=== PATIENT | male | born 1990 | race Caucasian/White ===

== ENCOUNTER → 2019-08-13 15:46 | Outpatient (BNVA) | payer SELFPAY | PROVIDERS: Visit Provider Nurse Practitioner Family | DX: S82.55XA Nondisplaced fracture of medial malleolus of left tibia, initial encounter for closed fracture (principal); X58.XXXA Exposure to other specified factors, initial encounter | CPT/HCPCS: 73590 ==

== ENCOUNTER → 2019-08-19 14:42 | Outpatient (BNVA) | payer SELFPAY | PROVIDERS: Referring Provider Nurse Practitioner Family; Visit Provider Podiatrist Foot & Ankle Surgery | DX: M25.572 Pain in left ankle and joints of left foot (principal) | CPT/HCPCS: 73610 ==

== ENCOUNTER 2019-08-19 15:32 | Outpatient (CLI) | payer SELFPAY | END 2019-08-19 15:33 | disposition home or self-care (01) | LOC: SPT 15:33 | PROVIDERS: Visit Provider Podiatrist Foot & Ankle Surgery | DX: Z46.89 Encounter for fitting and adjustment of other specified devices (principal); S80.12XD Contusion of left lower leg, subsequent encounter; X58.XXXD Exposure to other specified factors, subsequent encounter | CPT/HCPCS: 97760; L4361 ==

== ENCOUNTER 2020-03-08 10:28 | Emergency (ER) | payer SELFPAY ==
[2020-03-08 10:48] VITALS: BP 149/109; PULSE 105; RESP 18; TEMP 36.7; O2SAT 97; BMI 48.8
--- NOTE | 2020-03-08 11:01 | ED_ITS ---
HPI - Wound/Laceration General: Chief Complaint: Wound/Laceration Stated Complaint: Finger Injury Time Seen by Provider: 03/08/20 11:01 Source: patient Mode of arrival: ambulatory Limitations: no limitations History of Present Illness: HPI narrative: Patient was using a chainsaw this afternoon and the chain broke. Patient protected his face with his left hand. Patient injured his left ring finger. Patient has normal flexion-extension of the finger, there is ulnar side lacerations to the finger. Distal cap refill is intact. Review of Systems General: Reports: 10 or more systems reviewed and unremarkable except in HPI and below Skin/Breast: Reports: other (Lacerations left ring finger.) PFSH ED PFSH: Surgical History History of ankle surgery Right Family History Father Diabetes Cancer Social History Smoking and tobacco status: never smoked Physical Exam Const: COMMON NORMALS: no acute distress and patient oriented x3 GENERAL APPEARANCE: cooperative HENMT: COMMON NORMALS: normocephalic and Normal external nose present HEAD & SCALP: normal to inspection and normocephalic NOSE: Normal external nose present MOUTH: Normal oral and palatal mucosa present Eye: GENERAL EYE: appearance normal, both eyes and all related structures Neck/C-Spine: COMMON NORMALS: full ROM Chest: COMMONS NORMALS: normal inspection of the chest Resp: COMMON NORMALS: normal respiratory effort EFFORT & INSPECTION: Yes able to speak in complete sentences Cardio: COMMON NORMALS: regular rate and regular rhythm RATE: regular rate RHYTHM: regular rhythm GI: COMMON NORMALS: non-tender Back/Pelvis: COMMON NORMALS: thoracic and lumbar spine normal to inspection Extremity: COMMON NORMALS: normal to inspection Neuro: COMMON NORMALS: patient oriented x3 and moves all extremities Psych: COMMON NORMALS: mental status grossly normal and cooperative Skin: NARRATIVE SKIN EXAM: Multiple lacerations to the left ring finger. Procedures Laceration Laceration 1: Site: upper extremity (Left ring finger) Side (If applicable): left Size (cm): 5 Description: irregular Depth: simple, single layer Local Anesthetic: lidocaine 1% Amount of anesthesia used (mL): 5 Pre-repair: wound explored and irrigated extensively Skin layer closed with: nylon Size (cm): 5-0 Number of sutures: 10 Technique: simple, interrupted Course Vital Signs: Vital signs: Vital Signs Temperature 98.0 F 03/08/20 10:48 Pulse Rate 70 03/08/20 12:22 Respiratory Rate 16 03/08/20 12:22 Blood Pressure 149/109 03/08/20 10:48 Pulse Oximetry 98 03/08/20 12:22 MDM - Wound/Laceration MDM Narrative: Medical decision making narrative: Patient comes in for injury to the left ring finger. On exam we note normal flexion and extension of the finger. Pulses are intact. Distal cap refill is intact. Laceration to the ulnar side of the finger. Differential diagnosis includes tendon injury, bone fracture, neurovascular injury. Exam notes normal tendon function. Pulses are intact and cap refill is prompt. Patient does have some decreased sensation to the ulnar side of the finger. Laceration was left loose but repaired with 5-0 nylon. X-ray noted a fracture to the proximal phalanx. Fracture was comminuted in nature. Finger was splinted after laceration repair. Case management was consulted for follow-up with orthopedics for monitoring and further treatment as needed. Discharge Plan Discharge Patient Disposition: Home Clinical Impression: Fracture of proximal phalanx of digit of hand Laceration of finger of left hand with complication Qualifiers: Encounter type: initial encounter Qualified Code(s): S61.412A - Laceration without foreign body of left hand, initial encounter Condition: Stable Prescriptions: New cephalexin 500 mg capsule 500 mg PO TID 7 Days Qty: 21 RF: 0 No Action hydrocodone-acetaminophen 5-325 mg tablet 1 - 2 tab PO Q8H PRN (Reason: pain) 5 Days Qty: 30 RF: 0 mupirocin 2 % ointment 1 applic TOPICAL TID Qty: 22 RF: 0 (DME) [facility] See Rx Instructions .ROUTE .MEDSUPPLY Qty: 1 RF: 0 prednisone 10 mg tablet 10 mg PO DAILY 12 Days Qty: 42 RF: 0 Discharge Orders: Discharge ED (Routine); Ordered 03/08/20 Ordered By: Beau Toledo Discharge Diet: Usual diet Discharge Activity: Increase activity as tolerated Activity Restrictions/Additional Instructions: Keep wound clean and dry. Leave initial dressing intact until follow-up with specialist. If dressing would become wet or soiled it is recommended you change the dressing. Take antibiotics as directed. Follow-up with primary care as ne eded. Return to the emergency department for new concerns. Coding Level of Care Code ED [employer] Helper for Boone Navarro Exam Comprehensive
--- NOTE | 2020-03-08 11:07 | XRR_ITS ---
PROCEDURE INFORMATION: Exam: XR Left Hand Exam date and time: 03/08/2020 11:08 AM Age: 29 years old Clinical indication: Injury or trauma; Middle finger; Injury date: 03/08/20; Patient HX: Chainsaw accident, open wound 3rd digit left TECHNIQUE: Imaging protocol: XR Left hand. Views: 3 or more views. COMPARISON: No relevant prior studies available. FINDINGS: Bones/joints: There is soft tissue swelling of the middle finger. There is comminuted fracture of the distal medial aspect of the proximal phalanx of the middle finger. Fracture fragments are displaced about 4 mm dorsomedially. Soft tissues: Normal. XR/XR hand LT min 3V* [id number] IMPRESSION: Comminuted mildly displaced fractures of the distal medial aspect of the proximal phalanx of the middle finger.
[2020-03-08] MEDS: lidocaine 1% INJ 20 mL INJECTION (11:31)
[2020-03-08] MEDS: cephALEXin 500 mg Capsule PO (11:31)
[2020-03-08 12:22] VITALS: PULSE 70; RESP 16; O2SAT 98
--- NOTE | 2020-03-09 12:07 | DCPLANNER ---
Addendum entered by Brittney Zarate 03/09/20 12:09: shellie from the ortho clinic called case resolution specialist stating that patient is to follow up with primary care for wound care and suture removal. Patient can be seen at the ortho clinic if patient is having any trouble. Clinic will call patient and inform patient of this. Original Note: late entry - case resolution specialist had message to schedule a follow up appointment for patient with ortho. project account manager called the ortho clinic, spoke with Shellie, gave clinic patients information on 03.08.20. project account manager was told that patients information would be printed and reviewed. Clinic will call patient with appointment information.
== END 2020-03-08 12:23 | disposition home or self-care (01) ==
PROVIDERS: Emergency Provider Nurse Practitioner Family
DX: S61.215A Laceration without foreign body of left ring finger without damage to nail, initial encounter (principal); S62.613A Displaced fracture of proximal phalanx of left middle finger, initial encounter for closed fracture; W20.8XXA Other cause of strike by thrown, projected or falling object, initial encounter
CPT/HCPCS: 12002; 12345; 73130; 99281; 99283

== ENCOUNTER → 2020-03-23 08:45 | Outpatient (BNVA) | payer SELFPAY | PROVIDERS: Visit Provider Nurse Practitioner | DX: S61.412A Laceration without foreign body of left hand, initial encounter (principal); X58.XXXA Exposure to other specified factors, initial encounter; I10 Essential (primary) hypertension | CPT/HCPCS: 73130 ==

== ENCOUNTER → 2023-11-22 12:16 | Outpatient (BNVA) | payer SELFPAY | PROVIDERS: Visit Provider Podiatrist Foot & Ankle Surgery | DX: M25.571 Pain in right ankle and joints of right foot; M77.51 Other enthesopathy of right foot and ankle | CPT/HCPCS: 73610 ==